=== PATIENT | male | born 1985 | race American Indian/Alaskan Native ===

== ENCOUNTER 2016-07-30 15:56 | Emergency (ER) | payer OTHER ==
[2016-07-30 16:17] VITALS: BP 126/84
[2016-07-30 16:41] LABS: Basophils % (Auto) 0.6 % (0.0-1.8); Eosinophils % (Auto) 3.4 % (0.0-4.3); Hematocrit 43.5 % (35.5-45.6); Hemoglobin 14.7 gm/dl (11.8-15.2); Mean Corpuscular HGB Conc 34 % (32-34); Mean Corpuscular Hemoglobin 31 pg (28-32); Mean Corpuscular Volume 92 fl (84-94); Platelet Count 134 K/mm3 (140-440); Red Blood Count 4.75 M/mm3 (3.65-5.03); Red Cell Distribution Width 13.4 % (13.2-15.2)
[2016-07-30 17:03] LABS: BUN/Creatinine Ratio 18.75; Blood Urea Nitrogen 15 mg/dL (9-20); Calcium 8.9 mg/dL (8.4-10.2); Carbon Dioxide 27 mmol/L (22-30); Glucose 90 mg/dL (75-100)
[2016-07-30 17:04] LABS: Anion Gap 14 mmol/L; Potassium 4.3 mmol/L (3.6-5.0); Sodium 139 mmol/L (137-145)
--- NOTE | 2016-07-31 07:27 | XRay Report ---
ROUTINE CHEST, TWO VIEWS: HISTORY: Shortness of breast. The trachea, heart, mediastinal contour, lung arrington and bony thorax are unremarkable. IMPRESSION: Unremarkable chest x-ray. No significant change since 06/08/15.
== END 2016-07-31 00:40 | disposition left against medical advice (07) ==
LOC: ED 15:56
DX: R07.9 Chest pain, unspecified (principal); R06.02 Shortness of breath; M19.90 Unspecified osteoarthritis, unspecified site; Z53.21 Procedure and treatment not carried out due to patient leaving prior to being seen by health care provider
CPT/HCPCS: 36415; 71020; 80048; 84484; 85025; 93005; 93010